=== PATIENT | female | born 1960 | race Caucasian/White ===

== ENCOUNTER 2024-01-05 05:47 | Day surgery (SDC) | payer OTHER ==
[2024-01-05 06:13] VITALS: RESP 16
[2024-01-05] MEDS: Lactated Ringers 1,000 ML IV SCH (06:39)
[2024-01-05] MEDS ORDERED: Xylocaine-Mpf 2% 5 Ml Vial ONE (07:30)
[2024-01-05] MEDS ORDERED: DIPRIVAN 200 MG/20 ML IV ONE ×2 (07:30→07:56)
--- NOTE | 2024-01-05 08:49 | OP ---
SURGERY DATE/TIME: 01/05/2024 0737 PREOPERATIVE DIAGNOSIS: Screening colonoscopy. POSTOPERATIVE DIAGNOSIS: Sigmoid colon polyps. PROCEDURE: Colonoscopy. SURGEON: Jam Lopez M.D. ANESTHESIA: MAC by Sav Babb CRNA. ESTIMATED BLOOD LOSS: Minimal. SPECIMENS: Three hot forceps polypectomies from the sigmoid colon all sent in the same specimen container. DESCRIPTION OF PROCEDURE: After informed written consent was obtained, the patient was taken to the endoscopy suite. Anesthesia was titrated to desired level of consciousness. Digital rectal exam showed normal sphincter tone and no internal lesions. The scope was inserted into the rectum and sequentially the entire colonic mucosa was traversed. The level of cecum was reached and verified with direct visualization of the ileocecal valve. Upon withdrawal there was normal mucosa with no lesions or defects until the distal sigmoid colon was reached. Prep was noted to be good. There was a larger sessile polyp in the distal sigmoid colon which was grasped with forceps cauterized and removed in piecemeal fashion. There were two small, flat sessile polyps in the same area, which were likewise grasped, cauterized and sent in the same specimen container. Prior to withdrawal retroflexion was performed and showed no internal lesions. The scope was removed. The patient was transferred to the recovery room in good condition.
[2024-01-05 09:38] VITALS: TEMP 96.7
[2024-01-05 09:59] VITALS: BP 147/96; PULSE 85; O2SAT 98
[2024-01-05 10:08] LABS: ANION GAP 12.4 MEQ/L (5-15); BILIRUBIN,TOTAL 0.3 mg/dL (0.2-1.3); Calcium 9.1 mg/dL (8.4-10.2); Creatinine 1 0.79 mg/dL (0.52-1.04); EST GLOMERULAR FILTRATION RATE 85.1 ML/MIN; Potassium 4.2 mmol/L (3.5-5.1); Total Protein 7.2 g/dL (6.3-8.2)
== END 2024-01-05 10:45 | disposition home or self-care (01) ==
LOC: SDC 05:47
PROVIDERS: ATTEND Family Medicine
DX: Z12.11 Encounter for screening for malignant neoplasm of colon (principal); Z79.899 Other long term (current) drug therapy; D12.5 Benign neoplasm of sigmoid colon
CPT/HCPCS: 36415; 80053; J2704

== ENCOUNTER 2024-09-07 06:01 | Emergency (ER) | payer OTHER ==
[2024-09-07 06:27] VITALS: RESP 18; TEMP 96.6
--- NOTE | 2024-09-07 06:41 | ERPHSYRPT ---
- History of Present Illness Historian: patient Exam Limitations: no limitations Patient Subjective Stated Complaint: pt states for the past 3 nights she has been woken up with sharp pain to the rt upper abd. Triage Nursing Assessment: pt ambulated into the er; pt is axo x4; c/o RUQ pain; pt states 8/10 pain to abd; abd soft, tender; tenderness present to RUQ; active bowel sounds in all quads; pt c/o nausea, denies vomiting; pt states she had diarrhea yesterday; mucus membranes pink and moist; skin PDW; no respiratory distress present; hypertensive Hx Tetanus, Diphtheria Vaccination/Date Given: No (unknown) Hx Influenza Vaccination/Date Given: Yes Hx Pneumococcal Vaccination/Date Given: No <ALEXYS HARRY - Last Filed: 09/07/24 06:38> <RICHY KINCAID - Last Filed: 09/07/24 09:15> - History of Present Illness Time Seen by Provider: 09/07/24 06:34 Physician History: 64 years old female presented in the ER with complaint of right upper quadrant pain with associated nausea. Patient reports having off-and-on pain for the last 3 nights, got worst today, moderate to severe sharp with some radiation to the back with associated nausea but no vomiting. Denies any significant aggravating or relieving factors. No fever or chills reported. (ALEXYS HARRY) Allergies/Adverse Reactions: No Known Drug Allergies Allergy (Verified 09/07/24 06:15) Home Medications: Escitalopram Oxalate 20 mg PO DAILY 12/15/23 [History] Travel Risk - International Travel Have you traveled outside of the country in past 3 weeks: No - Emerging Infectious Disease Are you exhibiting symptoms associated with any current EIDs: Yes Comment: covid 4 weeks ago <ALEXYS HARRY - Last Filed: 09/07/24 06:38> - Review of Systems Constitutional: No Symptoms Ears, Nose, & Throat: No Symptoms Respiratory: No Symptoms Cardiac: No Symptoms Abdominal/Gastrointestinal: Abdominal Pain, Nausea Genitourinary Symptoms: No Symptoms Musculoskeletal: No Symptoms Skin: No Symptoms Neurological: No Symptoms Endocrine: No Symptoms Hematologic/Lymphatic: No Symptoms <ALEXYS HARRY - Last Filed: 09/07/24 06:38> - Past Medical History Pertinent Past Medical History: Yes Neurological History: No Pertinent History ENT History: No Pertinent History Cardiac History: No Pertinent History Respiratory History: No Pertinent History Endocrine Medical History: Other Musculoskeletal History: Degenerative Disk Disease GI Medical History: No Pertinent History Psycho-Social History: Anxiety Female Reproductive Disorders: Breast Cancer Other Medical History: HX OF BREAST CANCER WITH BILATERAL MASTECTOMY 2018. PAT IENT IS FULLY VACCINATED. ANXIETY DISORDER, OSTEOPENIA - Past Surgical History Past Surgical History: Yes Neuro Surgical History: No Pertinent History Cardiac: No Pertinent History Respiratory: No Pertinent History Gastrointestinal: No Pertinent History Genitourinary: No Pertinent History Musculoskeletal: No Pertinent History Female Surgical History: Hysterectomy, Mastectomy - Social History Smoking Status: Current every day smoker How long have you smoked: 30 Exposure to second hand smoke: No Drug Use: none - Social Determinants of Health Will the patient participate in the screening: Yes Do you worry about a steady place to live?: No Do you have any problems with any of the following?: No known problems In the past 12 months,have you had to go without utilities?: No Transportation Issues: No Has anyone in your support network made you feel unsafe?: No Have you or anyone in your house had to go without enough: No <ALEXYS HARRY - Last Filed: 09/07/24 06:38> - Physical Exam General Appearance: no apparent distress, alert Eye Exam: PERRL/EOMI Ears, Nose, Throat Exam: normal ENT inspection Neck Exam: normal inspection, full range of motion Respiratory Exam: normal breath sounds, lungs clear Cardiovascular Exam: regular rate/rhythm, normal heart sounds Gastrointestinal/Abdomen Exam: soft, normal bowel sounds, tenderness (Right upper quadrant with some guarding positive Martínez sign) Back Exam: normal inspection, normal range of motion Neurologic Exam: alert, oriented x 3, cooperative Skin Exam: normal color SpO2 Interpretation: normal SpO2: 99 O2 Delivery: Room Air <ALEXYS HARRY - Last Filed: 09/07/24 06:38> - Nursing Vital Signs Nursing Vital Signs: Initial Vital Signs Pulse Rate 61 09/07/24 06:15 Blood Pressure 150/87 09/07/24 06:15 O2 Sat by Pulse Oximetry 98 09/07/24 06:15 Pain Scale Pain Intensity 6 Ordered Tests: Active Orders 24 hr Category Date Time Status IV Insertion STAT Care 09/07/24 06:37 Active NPO (ED) STAT Care 09/07/24 06:37 Active ABDOMEN AND PELVIS W/0 CONTRAS [CT] Stat Exams 09/07/24 06:38 Completed CBC W DIFF Stat Lab 09/07/24 06:58 Completed CMP Stat Lab 09/07/24 06:58 Completed LIPASE Stat Lab 09/07/24 06:58 Completed TROPONIN Q4H Lab 09/07/24 06:58 Completed TROPONIN Q4H Lab 09/07/24 10:45 Ordered TROPONIN Q4H Lab 09/07/24 14:45 Ordered UA W/RFX UR CULTURE Stat Lab 09/07/24 06:40 Completed Medication Summary Discontinued Medications Generic Name Dose Route Start Last Admin Trade Name Freq PRN Reason Stop Dose Admin Morphine Sulfate 4 mg 09/07/24 06:37 09/07/24 06:50 Morphine Sulfate 4 Mg/Ml Injection IV 09/07/24 06:38 4 mg STAT ONE Administration Morphine Sulfate Confirm 09/07/24 06:49 Morphine Sulfate 4 Mg/Ml Injection Administered 09/07/24 06:50 Dose 4 mg .ROUTE .STK-MED ONE Ondansetron HCl 4 mg 09/07/24 06:37 09/07/24 06:50 Ondansetron Hcl 4 Mg/2 Ml Vial IV 09/07/24 06:38 4 mg STAT ONE Administration Ondansetron HCl Confirm 09/07/24 06:49 Ondansetron Hcl 4 Mg/2 Ml Vial Administered 09/07/24 06:50 Dose 4 mg .ROUTE .STK-MED ONE Lab/Rad Data: Laboratory Result Diagrams 09/07/24 06:58 09/07/24 06:58 Laboratory Results 09/07/24 09/07/24 09/07/24 Range/Units 06:58 06:58 06:58 WBC 5.9 (3.98-10.04) x10^3/uL RBC 4.00 (3.93-5.22) x10^6/uL Hgb 12.9 (11.2-15.7) g/dL Hct 37.2 (34.1-44.9) % MCV 93.0 (79.4-94.8) fL MCH 32.3 H (25.6-32.2) pg MCHC 34.7 (32.2-35.5) g/dL RDW 12.8 (11.7-14.4) % Plt Count 132 L (182-369) x10^3/uL MPV 11.5 (9.4-12.3) fL Gran % 61.7 (34.0-71.1) % Immature Gran % (Auto) 0.2 (0.001-0.429) % Nucleat RBC Rel Count 0.0 (0.00-0.2) % Eos # (Auto) 0.07 (0.04-0.36) x10^3/uL Immature Gran # (Auto) 0.01 (0.001-0.031) x10^3u/L Absolute Lymphs (auto) 1.65 (1.18-3.74) x10^3/uL Absolute Monos (auto) 0.48 (0.24-0.86) x10^3/uL Absolute Nucleated RBC 0.00 (0.00-0.012) x10^3u/L Lymphocytes % 28.2 (19.3-51.7) % Monocytes % 8.2 (4.7-12.5) % Eosinophils % 1.2 (0.7-5.8) % Basophils % 0.5 (0.1-1.2) % Absolute Granulocytes 3.62 (1.56-6.13) x10^3/uL Basophils # 0.03 (0.01-0.08) x10^3/uL Sodium 138 (135-145) mmol/L Potassium 4.0 (3.5-5.1) mmol/L Chloride 105 (98-107) mmol/L Carbon Dioxide 24 (22-30) mmol/L Anion Gap 13.2 (5-15) MEQ/L BUN 12 (7-17) mg/dL Creatinine 0.97 (0.52-1.04) mg/dL Estimated GFR 66.1 ML/MIN Glucose 105 (74-106) mg/dL Calcium 9.5 (8.4-10.2) mg/dL Total Bilirubin 0.40 (0.2-1.3) mg/dL AST 26 (14-36) U/L ALT 20 (0-35) U/L Alkaline Phosphatase 81 (38-126) U/L Troponin I < 0.012 (0.000-0.033) ng/mL Serum Total Protein 7.2 (6.3-8.2) g/dL Albumin 4.2 (3.5-5.0) g/dL Lipase 60 (23-300) U/L Urine Color (Yellow) Urine Appearance (Clear) Urine pH (4.6-8.0) Ur Specific [place] (1.005-1.030) Urine Protein (Negative) Urine Glucose (UA) (Negative) mg/dL Urine Ketones (Negative) Urine Blood (Negative) Urine Nitrite (Negative) Urine Bilirubin (Negative) Urine Urobilinogen (0.2) mg/dL Ur Leukocyte Esterase (Negative) U Hyaline Cast (Auto) (0-2) /LPF Urine Microscopic RBC (0-5) /HPF Urine Microscopic WBC (0-5) /HPF Ur Epithelial Cells (None Seen) /HPF Urine Bacteria (None Seen) /HPF Urine Culture Reflexed (NO) 09/07/24 Range/Units 06:40 WBC (3.98-10.04) x10^3/uL RBC (3.93-5.22) x10^6/uL Hgb (11.2-15.7) g/dL Hct (34.1-44.9) % MCV (79.4-94.8) fL MCH (25.6-32.2) pg MCHC (32.2-35.5) g/dL RDW (11.7-14.4) % Plt Count (182-369) x10^3/uL MPV (9.4-12.3) fL Gran % (34.0-71.1) % Immature Gran % (Auto) (0.001-0.429) % Nucleat RBC Rel Count (0.00-0.2) % Eos # (Auto) (0.04-0.36) x10^3/uL Immature Gran # (Auto) (0.001-0.031) x10^3u/L Absolute Lymphs (auto) (1.18-3.74) x10^3/uL Absolute Monos (auto) (0.24-0.86) x10^3/uL Absolute Nucleated RBC (0.00-0.012) x10^3u/L Lymphocytes % (19.3-51.7) % Monocytes % (4.7-12.5) % Eosinophils % (0.7-5.8) % Basophils % (0.1-1.2) % Absolute Granulocytes (1.56-6.13) x10^3/uL Basophils # (0.01-0.08) x10^3/uL Sodium (135-145) mmol/L Potassium (3.5-5.1) mmol/L Chloride (98-107) mmol/L Carbon Dioxide (22-30) mmol/L Anion Gap (5-15) MEQ/L BUN (7-17) mg/dL Creatinine (0.52-1.04) mg/dL Estimated GFR ML/MIN Glucose (74-106) mg/dL Calcium (8.4-10.2) mg/dL Total Bilirubin (0.2-1.3) mg/dL AST (14-36) U/L ALT (0-35) U/L Alkaline Phosphatase (38-126) U/L Troponin I (0.000-0.033) ng/mL Serum Total Protein (6.3-8.2) g/dL Albumin (3.5-5.0) g/dL Lipase (23-300) U/L Urine Color Yellow (Yellow) Urine Appearance Cloudy A (Clear) Urine pH 5.5 (4.6-8.0) Ur Specific [place] 1.020 (1.005-1.030) Urine Protein Trace A (Negative) Urine Glucose (UA) Negative (Negative) mg/dL Urine Ketones Trace A (Negative) Urine Blood Negative (Negative) Urine Nitrite Negative (Negative) Urine Bilirubin Negative (Negative) Urine Urobilinogen 0.2 (0.2) mg/dL Ur Leukocyte Esterase Negative (Negative) U Hyaline Cast (Auto) NONE SEEN (0-2) /LPF Urine Microscopic RBC 0-2 (0-5) /HPF Urine Microscopic WBC 3-5 (0-5) /HPF Ur Epithelial Cells Many A (None Seen) /HPF Urine Bacteria None Seen (None Seen) /HPF Urine Culture Reflexed NO (NO) <ALEXYS HARRY - Last Filed: 09/07/24 06:38> - Progress Progress: improved <RICHY KINCAID - Last Filed: 09/07/24 09:15> - Progress Progress Note: 09/07/24 06:51 Workup is pending, care is transferred to Dr. Kincaid at end of my shift for reevaluation and final disposition (ALEXYS HARRY) 09/07/24 09:12 I interpreted the patient's laboratory data results. Patient is trace ketones in her urine suggesting mild dehydration. Patient's liver function test and pancreas enzymes levels are also within normal limits. The CT scan of the abdomen pelvis without contrast was interpreted by the radiologist and I reviewed the impression. The impression states abnormally distended gallbladder with wall thickening. No evidence of cholelithiasis. Outpatient ultrasound may yield more information. There is moderate fecal stasis present. The lumbar spine is with mild degenerative changes. (RICHY KINCAID) Medical Desision Making - Independent Historian Additional History obtained from: Family - Diagnostic Testing Diagnostic test were ordered, analyzed, and reviewed by me: Yes Radiological Interpretation: Reviewed by me, Teleradiologist Report - Risk of complications Low Risk: Low risk of morbidity from additional dx testing or treatment <RICHY KINCAID - Last Filed: 09/07/24 09:15> <ALEXYS HARRY - Last Filed: 09/07/24 06:38> - Departure Departure Disposition: Home Critical Care Time: No <RICHY KINCAID - Last Filed: 09/07/24 09:15> - Departure Clinical Impression: Right upper quadrant abdominal pain Condition: Stable Referrals: MARTHA LÓPEZ MD [Primary Care Provider] - Follow up/PCP as directed Additional Instructions: Drink plenty of clear liquids. Avoid fatty greasy spicy foods. Call your primary care provider today, 09/07/2024, to make arrangements for follow-up appointment to be seen in the next 3-5 days for further evaluation and management including outpatient ultrasound of the gallbladder and HIDA scan if indicated. Prescriptions: Ondansetron ODT 4 MG [Zofran Odt 4 mg] 4 mg PO Q6H PRN PRN #10 tablet PRN Reason: Vomiting
[2024-09-07] MEDS ORDERED: Zofran 4 MG/2 ML VIAL ONE (06:49)
[2024-09-07] MEDS ORDERED: MORPHINE SULFATE 4 MG INJ ONE (06:49)
[2024-09-07] MEDS: Zofran 4 MG/2 ML VIAL IV ONE (06:50)
[2024-09-07] MEDS: MORPHINE SULFATE 4 MG INJ IV ONE (06:50)
[2024-09-07 07:03] LABS: Absolute Neutrophil Ct (ANC) 3.62 x10^3/uL (1.56-6.13); BASOPHIL % 0.5 % (0.1-1.2); Basophil (Absolute #) 0.03 x10^3/uL (0.01-0.08); Eosinophil % 1.2 % (0.7-5.8); Eosinophil (Absolute #) 0.07 x10^3/uL (0.04-0.36); Hematocrit 37.2 % (34.1-44.9); Hemoglobin 12.9 g/dL (11.2-15.7); IMMATURE GRAN # 0.01 x10^3u/L (0.001-0.031); IMMATURE GRAN % 0.2 % (0.001-0.429); Lymphocyte (Absolute #) 1.65 x10^3/uL (1.18-3.74); Lymphocytes % 28.2 % (19.3-51.7); Mean Corpuscular Hemoglobin 32.3 pg (25.6-32.2); Mean Corpuscular Hgb Concent. 34.7 g/dL (32.2-35.5); Mean Platelet Volume 11.5 fL (9.4-12.3); Monocyte (Absolute #) 0.48 x10^3/uL (0.24-0.86); Monocytes % 8.2 % (4.7-12.5); Neutrophil % 61.7 % (34.0-71.1); Platelet Count 132 x10^3/uL (182-369); Red Cell Distribution Width 12.8 % (11.7-14.4); White Blood Count 5.9 x10^3/uL (3.98-10.04)
[2024-09-07 07:05] VITALS: BP 135/87; PULSE 58
[2024-09-07 07:16] LABS: Appearance Cloudy (Clear); Bacteria None Seen /HPF (None Seen); Bilirubin Negative (Negative); Blood Negative (Negative); Epithelial Cells Many /HPF (None Seen); Glucose, Urine Negative (Negative); Hyaline Casts NONE SEEN /LPF (0-2); Ketones Trace (Negative); Leukocyte Esterase Negative (Negative); Nitrite Negative (Negative); Ph 5.5 (4.6-8.0); Protein,Urine Dip Trace (Negative); RBC 0-2 /HPF (0-5); Urobilinogen 0.2 mg/dL (0.2)
[2024-09-07 07:17] LABS: ALBUMIN 4.2 g/dL (3.5-5.0); ANION GAP 13.2 MEQ/L (5-15); BILIRUBIN,TOTAL 0.4 mg/dL (0.2-1.3); Calcium 9.5 mg/dL (8.4-10.2); Creatinine 1 0.97 mg/dL (0.52-1.04); EST GLOMERULAR FILTRATION RATE 66.1 ML/MIN; Total Protein 7.2 g/dL (6.3-8.2)
--- NOTE | 2024-09-07 08:51 | XRAY ---
Indication: Right upper quadrant pain. Multiple contiguous axial images obtained through the abdomen and pelvis without contrast. Comparison: None Lung bases clear. Heart is not enlarged. Noncontrasted stomach and bowel loops appear nonobstructed with normal appendix. Moderate diffuse colonic fecal debris. Abnormal distended gallbladder with wall thickening but no gallstones or abnormal biliary distention. Previous hysterectomy. No free fluid/air. Remaining liver, pancreas, spleen, adrenal glands, kidneys, ureters, and bladder are unremarkable for noncontrast exam. Minimal aortoiliac calcifications without AAA. Osseous structures intact with mild degenerative changes throughout lumbar spine and both hips. Impression: 1. Abnormally distended gallbladder with wall thickening better evaluated with sonogram. 2. Incidental moderate diffuse fecal stasis, minimal arteriosclerotic disease, and mild degenerative changes.
[2024-09-07 09:31] VITALS: O2SAT 96
== END 2024-09-07 09:36 | disposition home or self-care (01) ==
LOC: ED 06:01
DX: R10.11 Right upper quadrant pain (principal); R11.0 Nausea; Z72.0 Tobacco use; Z79.899 Other long term (current) drug therapy
CPT/HCPCS: 36415; 74176; 80053; 81001; 83690; 84484; 85025; 96374; 99284; 99285; J2270; J2405

== ENCOUNTER 2025-01-04 01:23 | Emergency (ER) | payer OTHER ==
[2025-01-04 01:45] VITALS: TEMP 97.3
[2025-01-04] MEDS ORDERED: Zofran 4 MG/2 ML VIAL ONE (01:45)
--- NOTE | 2025-01-04 01:45 | ERPHSYRPT ---
- History of Present Illness Time Seen by Provider: 01/04/25 01:25 Historian: patient, family Exam Limitations: no limitations Physician History: 64 years old female with history of cholelithiasis/biliary colic's has seen general surgery, planning on cholecystectomy but patient has been throwing PVCs with pending ablations. She has Holter monitoring done few days ago with pending cardiology read presented in the ER with sudden onset right upper quadrant pain around 9 PM with associated multiple episodes of nonprojectile, nonbilious vomiting without hematemesis. Patient is dry heaving now. Reports 10/10 intensity sharp pain, aggravated with palpation and minimal movements. Denies associated diarrhea. Reports having similar symptoms in the past. No fever or chills reported. Allergies/Adverse Reactions: No Known Drug Allergies Allergy (Verified 01/04/25 01:33) Home Medications: Carvedilol 3.125 mg [Coreg 3.125 MG] 3.125 mg PO BID 01/04/25 [History] Escitalopram Oxalate [Lexapro] 10 mg PO DAILY 01/04/25 [History] Esomeprazole Magnesium [Nexium] 40 mg PO DAILY 01/04/25 [History] Hx Tetanus, Diphtheria Vaccination/Date Given: No (unknown) Hx Influenza Vaccination/Date Given: Yes Hx Pneumococcal Vaccination/Date Given: No Travel Risk - Emerging Infectious Disease Are you exhibiting symptoms associated with any current EIDs: Yes Comment: covid 4 weeks ago - Review of Systems Constitutional: No Symptoms Ears, Nose, & Throat: No Symptoms Respiratory: No Symptoms Cardiac: No Symptoms Abdominal/Gastrointestinal: Abdominal Pain, Nausea, Vomiting Genitourinary Symptoms: No Symptoms Musculoskeletal: No Symptoms Skin: No Symptoms Neurological: No Symptoms Psychological: No Symptoms Endocrine: No Symptoms Hematologic/Lymphatic: No Symptoms Immunological/Allergic: No Symptoms - Past Medical History Pertinent Past Medical History: Yes Neurological History: No Pertinent History ENT History: No Pertinent History Cardiac History: No Pertinent History Respiratory History: No Pertinent History Endocrine Medical History: Other Musculoskeletal History: Degenerative Disk Disease GI Medical History: No Pertinent History Psycho-Social History: Anxiety Female Reproductive Disorders: Breast Cancer Other Medical History: HX OF BREAST CANCER WITH BILATERAL MASTECTOMY 2018. PATIENT IS FULLY VACCINATED. ANXIETY DISORDER, OSTEOPENIA - Past Surgical History Past Surgical History: Yes Neuro Surgical History: No Pertinent History Cardiac: No Pertinent History Respiratory: No Pertinent History Gastrointestinal: No Pertinent History Genitourinary: No Pertinent History Musculoskeletal: No Pertinent History Female Surgical History: Hysterectomy, Mastectomy - Social History Smoking Status: Current every day smoker How long have you smoked: 30 Exposure to second hand smoke: No Drug Use: none - Social Determinants of Health Will the patient participate in the screening: Yes Do you worry about a steady place to live?: No In the past 12 months,have you had to go without utilities?: No Transportation Issues: No Has anyone in your support network made you feel unsafe?: No Have you or anyone in your house had to go w/o enough food: No - Nursing Vital Signs Nursing Vital Signs: Initial Vital Signs Temperature 97.3 F 01/04/25 01:33 Pulse Rate 87 01/04/25 01:33 Respiratory Rate 22 01/04/25 01:33 Blood Pressure 167/108 01/04/25 01:33 O2 Sat by Pulse Oximetry 100 01/04/25 01:33 Pain Scale Pain Intensity 0 - Physical Exam General Appearance: no apparent distress, alert Eye Exam: PERRL/EOMI Ears, Nose, Throat Exam: normal ENT inspection Neck Exam: normal inspection, non-tender, supple, full range of motion Respiratory Exam: normal breath sounds, lungs clear Cardiovascular Exam: regular rate/rhythm, normal heart sounds Gastrointestinal/Abdomen Exam: soft, tenderness, guarding (Positive Martínez sign), No normal bowel sounds Back Exam: normal inspection, normal range of motion Extremity Exam: normal inspection, normal range of motion Neurologic Exam: alert, oriented x 3, cooperative Skin Exam: normal color SpO2 Interpretation: normal SpO2: 96 O2 Delivery: Room Air - Course EKG Interpreted by Me: RATE (73), Sinus Rhythm, NORMAL AXIS, NORMAL INTERVALS, Non-specific ST Changes, Other (PVCs) Ordered Tests: Active Orders 24 hr Category Date Time Status IV Insertion STAT Care 01/04/25 01:42 Completed NPO (ED) STAT Care 01/04/25 01:42 Completed ABDOMEN AND PELVIS W/0 CONTRAS [CT] Stat Exams 01/04/25 02:15 Completed CBC W DIFF Stat Lab 01/04/25 01:55 Completed CMP Stat Lab 01/04/25 01:55 Completed LIPASE Stat Lab 01/04/25 01:55 Completed UA W/RFX UR CULTURE Stat Lab 01/04/25 04:45 Completed Medication Summary Discontinued Medications Generic Name Dose Route Start Last Admin Trade Name Dayo PRN Reason Stop Dose Admin Hydromorphone HCl Confirm 01/04/25 02:53 Hydromorphone 1 Mg/1ml Inj Administered 01/04/25 02:54 Dose 1 mg .ROUTE .STK-MED ONE Hydromorphone HCl 1 mg 01/04/25 02:45 01/04/25 02:54 Hydromorphone 1 Mg/1ml Inj IV 01/04/25 02:46 1 mg STAT ONE Administration Sodium Chloride 1,000 mls @ 999 mls/hr 01/04/25 01:42 01/04/25 02:52 Sodium Chloride 0.9% 1000 Ml IV 01/04/25 02:42 Infused .Q1H1M STA Infusion Sodium Chloride Confirm 01/04/25 01:46 Sodium Chloride 0.9% 1000 Ml Administered 01/04/25 01:47 Dose 1,000 mls @ ud .ROUTE .STK-MED ONE Morphine Sulfate 4 mg 01/04/25 01:42 01/04/25 01:52 Morphine Sulfate 4 Mg/Ml Injection IV 01/04/25 01:43 4 mg STAT ONE Administration Morphine Sulfate Confirm 01/04/25 01:46 Morphine Sulfate 4 Mg/Ml Injection Administered 01/04/25 01:47 Dose 4 mg .ROUTE .STK-MED ONE Ondansetron HCl 4 mg 01/04/25 01:42 01/04/25 01:52 Ondansetron Hcl 4 Mg/2 Ml Vial IV 01/04/25 01:43 4 mg STAT ONE Administration Ondansetron HCl Confirm 01/04/25 01:45 Ondansetron Hcl 4 Mg/2 Ml Vial Administered 01/04/25 01:46 Dose 4 mg .ROUTE .STK-MED ONE Lab/Rad Data: Laboratory Result Diagrams 01/04/25 01:55 01/04/25 01:55 Laboratory Results 01/04/25 01/04/25 01/04/25 Range/Units 04:45 01:55 01:55 WBC 10.8 H (3.98-10.04) x10^3/uL RBC 4.45 (3.93-5.22) x10^6/uL Hgb 14.0 (11.2-15.7) g/dL Hct 39.6 (34.1-44.9) % MCV 89.0 (79.4-94.8) fL MCH 31.5 (25.6-32.2) pg MCHC 35.4 (32.2-35.5) g/dL RDW 11.7 (11.7-14.4) % Plt Count 222 (182-369) x10^3/uL MPV 11.5 (9.4-12.3) fL Gran % 69.1 (34.0-71.1) % Immature Gran % (Auto) 0.2 (0.001-0.429) % Nucleat RBC Rel Count 0.0 (0.00-0.2) % Eos # (Auto) 0.09 (0.04-0.36) x10^3/uL Immature Gran # (Auto) 0.02 (0.001-0.031) x10^3u/L Absolute Lymphs (auto) 2.40 (1.18-3.74) x10^3/uL Absolute Monos (auto) 0.75 (0.24-0.86) x10^3/uL Absolute Nucleated RBC 0.00 (0.00-0.012) x10^3u/L Lymphocytes % 22.2 (19.3-51.7) % Monocytes % 6.9 (4.7-12.5) % Eosinophils % 0.8 (0.7-5.8) % Basophils % 0.8 (0.1-1.2) % Absolute Granulocytes 7.45 H (1.56-6.13) x10^3/uL Basophils # 0.09 H (0.01-0.08) x10^3/uL Sodium 137 (135-145) mmol/L Potassium 3.5 (3.5-5.1) mmol/L Chloride 101 (98-107) mmol/L Carbon Dioxide 21 L (22-30) mmol/L Anion Gap 18.2 H (5-15) MEQ/L BUN 11 (7-17) mg/dL Creatinine 0.75 (0.52-1.04) mg/dL Estimated GFR 90.0 ML/MIN Glucose 146 H (74-106) mg/dL Calcium 9.7 (8.4-10.2) mg/dL Total Bilirubin 0.50 (0.2-1.3) mg/dL AST 29 (14-36) U/L ALT 29 (0-35) U/L Alkaline Phosphatase 121 (38-126) U/L Serum Total Protein 7.7 (6.3-8.2) g/dL Albumin 4.8 (3.5-5.0) g/dL Lipase 85 (23-300) U/L Urine Color Yellow (Yellow) Urine Appearance Clear (Clear) Urine pH 5.0 (4.6-8.0) Ur Specific Simpson 1.010 (1.005-1.030) Urine Protein Negative (Negative) Urine Glucose (UA) Negative (Negative) mg/dL Urine Ketones Negative (Negative) Urine Blood Negative (Negative) Urine Nitrite Negative (Negative) Urine Bilirubin Negative (Negative) Urine Urobilinogen 0.2 (0.2) mg/dL Ur Leukocyte Esterase Negative (Negative) U Hyaline Cast (Auto) NONE SEEN (0-2) /LPF Urine Microscopic RBC 0-2 (0-5) /HPF Urine Microscopic WBC 0-2 (0-5) /HPF Ur Epithelial Cells None Seen (None Seen) /HPF Urine Bacteria None Seen (None Seen) /HPF Urine Culture Reflexed NO (NO) - Progress Progress: improved Progress Note: 01/04/25 04:52 64 years old is evaluated in ER for right upper quadrant pain with history of distended gallbladder/cholelithiasis. Patient meets criteria for cholecystectomy but needs cardiology clearance which she is in the process of getting because of repeated/frequent PVCs. She is given fluids and symptomatic treatment, on reevaluation she is feeling better. No vomiting while in the ER. Workup showed white count of 10, chemistries fairly unremarkable with normal transaminases and total bili. Normal lipase. Obtained CT abdomen pelvis without contrast which showed distended gallbladder but no findings suggestive of acute cholecystitis. I believe patient has biliary colic. Patient CT although did not show any stone but patient does have a history of documented stones in the previous studies. I think patient can be discharged and recommended to keep up with appointment for cardiology and follow-up with Dr. Merritt whom she has seen before and is planning on cholecystectomy. Discussed signs symptoms of worsening needing return to ER which she seems understanding. I will give her pain medications and Zofran to go home to take as needed. Complexity of problem addressed: Moderate acute Complexity of data reviewed/analyzed: Moderate Risk of complication/morbidity/mortality with manage condition: Low to moderate Counseled pt/family regarding: lab results, diagnosis, need for follow-up, rad results Medical Desision Making - Independent Historian Additional History obtained from: Spouse - Diagnostic Testing Diagnostic test were ordered, analyzed, and reviewed by me: Yes Radiological Interpretation: Reviewed by me, Teleradiologist Report - Risk of complications The pt has a mod risk of morbidity or mortality based on: Need for prescription drug management - Departure Departure Disposition: Home Clinical Impression: Biliary colic Condition: Stable Critical Care Time: No Referrals: MARTHA LÓPEZ MD [Primary Care Provider] - Follow up with PCP 1 day Instructions: Gallstones - ED discharge instructions Additional Instructions: Keep appointment with your equal opportunity representative for clearance. Follow-up with Dr. Merritt as discussed. Return to ER for intractable pain/vomiting or if develop fever chills etc. Prescriptions: Hydrocodone/Acetaminophen [Hydrocodone-Acetamin 5-325 mg] 1 tab PO Q6HPRN PRN 3 Days #12 tablet MDD 4 PRN Reason: Pain Ondansetron ODT 4 MG [Zofran Odt 4 mg] 1 ea PO QIDPRN PRN #10 tablet PRN Reason: n/v
[2025-01-04] MEDS ORDERED: MORPHINE SULFATE 4 MG INJ ONE (01:46)
[2025-01-04] MEDS ORDERED: Sodium Chloride 0.9% 1000 ML 1,000 ML ONE (01:46)
[2025-01-04] MEDS: MORPHINE SULFATE 4 MG INJ IV ONE (01:52)
[2025-01-04] MEDS: Sodium Chloride 0.9% 1000 ML 1,000 ML IV STA (01:52)
[2025-01-04] MEDS: Zofran 4 MG/2 ML VIAL IV ONE (01:52)
[2025-01-04 01:58] LABS: Absolute Neutrophil Ct (ANC) 7.45 x10^3/uL (1.56-6.13); BASOPHIL % 0.8 % (0.1-1.2); Basophil (Absolute #) 0.09 x10^3/uL (0.01-0.08); Eosinophil % 0.8 % (0.7-5.8); Eosinophil (Absolute #) 0.09 x10^3/uL (0.04-0.36); Hematocrit 39.6 % (34.1-44.9); IMMATURE GRAN # 0.02 x10^3u/L (0.001-0.031); IMMATURE GRAN % 0.2 % (0.001-0.429); Lymphocytes % 22.2 % (19.3-51.7); Mean Corpuscular Hemoglobin 31.5 pg (25.6-32.2); Mean Corpuscular Hgb Concent. 35.4 g/dL (32.2-35.5); Mean Platelet Volume 11.5 fL (9.4-12.3); Monocyte (Absolute #) 0.75 x10^3/uL (0.24-0.86); Monocytes % 6.9 % (4.7-12.5); Neutrophil % 69.1 % (34.0-71.1); Platelet Count 222 x10^3/uL (182-369); Red Blood Count 4.45 x10^6/uL (3.93-5.22); Red Cell Distribution Width 11.7 % (11.7-14.4); White Blood Count 10.8 x10^3/uL (3.98-10.04)
[2025-01-04 02:11] LABS: ALBUMIN 4.8 g/dL (3.5-5.0); ANION GAP 18.2 MEQ/L (5-15); BILIRUBIN,TOTAL 0.5 mg/dL (0.2-1.3); Calcium 9.7 mg/dL (8.4-10.2); Creatinine 1 0.75 mg/dL (0.52-1.04); Potassium 3.5 mmol/L (3.5-5.1); Total Protein 7.7 g/dL (6.3-8.2)
[2025-01-04] MEDS ORDERED: Hydromorphone 1 mg/ml Injection ONE (02:53)
[2025-01-04] MEDS: Hydromorphone 1 mg/ml Injection IV ONE (02:54)
--- NOTE | 2025-01-04 03:17 | XRAY ---
CLINICAL HISTORY: RUQ PAIN rule out acute cholecystit COMPARISON: 07 September 2024 TECHNIQUE: Contiguous axial images were obtained from the level of the diaphragm to the pubic symphysis without intravenous or oral contrast. Coronal and sagittal reconstructions were likewise performed and indicated to increase the sensitivity for detecting clinically relevant pathology. CT scan was performed according to ALARA (as low as reasonable achievable). FINDINGS: The visualized lung bases are clear. Evaluation of the abdominal and pelvic visceral organs is limited without intravenous contrast. The unenhanced liver, spleen, pancreas, and adrenal glands are grossly unremarkable. The gallbladder is distended (8 x 3 cm). No hyperdense calculus noted. No abnormal wall thickening or pericholecystic fat stranding noted to suggest cholecystitis. No intrahepatic biliary radicle dilatation noted. The kidneys are normal in size and attenuation without obvious calcification. There is no hydronephrosis or perinephric stranding. The ureters are normal in caliber. No adenopathy or fluid collections are seen. No evidence of focal or diffuse bowel wall thickening or evidence of bowel obstruction is seen. The appendix is visualized in the right lower quadrant and appears within normal limits. The aorta is normal in caliber. The urinary bladder is normal in contour. Pelvic viscera are grossly unremarkable. No aggressive appearing osseous lesions are identified. IMPRESSION: 1. Distended gall bladder with no features of cholecystitis and no intrahepatic biliary radicle dilatation. 2. As compared to prior study, gall bladder wall thickening has resolved. Electronically Signed by: Luis Quiros MD. (01/04/2025 03:13:20 EDT)
[2025-01-04 04:55] LABS: Appearance Clear (Clear); Bacteria None Seen /HPF (None Seen); Bilirubin Negative (Negative); Blood Negative (Negative); Epithelial Cells None Seen /HPF (None Seen); Glucose, Urine Negative (Negative); Hyaline Casts NONE SEEN /LPF (0-2); Ketones Negative (Negative); Leukocyte Esterase Negative (Negative); Nitrite Negative (Negative); Protein,Urine Dip Negative (Negative); RBC 0-2 /HPF (0-5); Urobilinogen 0.2 mg/dL (0.2); WBC 0-2 /HPF (0-5)
[2025-01-04 05:08] VITALS: BP 133/94
[2025-01-04 05:12] VITALS: PULSE 96; RESP 16; O2SAT 96
== END 2025-01-04 05:17 | disposition home or self-care (01) ==
LOC: ED 01:23
DX: K80.50 Calculus of bile duct without cholangitis or cholecystitis without obstruction (principal); R11.2 Nausea with vomiting, unspecified; R10.11 Right upper quadrant pain; Z79.891 Long term (current) use of opiate analgesic; Z79.899 Other long term (current) drug therapy; Z72.0 Tobacco use
CPT/HCPCS: 36415; 74176; 80053; 81001; 83690; 85025; 93005; 96361; 96374; 96375; 99284; 99285; J1171; J2270; J2405

== ENCOUNTER 2025-01-06 10:18 | Observation (INO) | payer OTHER ==
[2025-01-06] MEDS ORDERED: Sodium Chloride 0.9% 1000 ML 1,000 ML ONE ×2 (10:51→21:18)
[2025-01-06] MEDS ORDERED: Hydromorphone 1 mg/ml Injection ONE (10:51)
[2025-01-06] MEDS ORDERED: Zofran 4 MG/2 ML VIAL ONE ×2 (10:51→20:36)
--- NOTE | 2025-01-06 10:52 | ERPHSYRPT ---
- History of Present Illness Historian: patient Exam Limitations: no limitations Patient Subjective Stated Complaint: C/O "gallbladder attack" that started at 0730 today. Right sided abdominal pain with N/V. Triage Nursing Assessment: Patient ambulated back to ER. She is alert and oriented. S/S of pain present; grimacing, moaning, gaurding. MORAN WNL. Skin tone normal. Timing/Duration: today Activities at Onset: none Quality: cramping, sharpness Abdominal Pain Onset Location: RUQ Pain Radiation: no radiation Severity of Pain-Max: moderate Severity of Pain-Current: moderate Modifying Factors: Improves With: nothing Associated Symptoms: loss of appetite, nausea, vomiting, No back, No chest pain, No diaphoresis, No diarrhea, No fever/chills, No shortness of breath Previous symptoms: same symptoms as today, recently seen Hx Tetanus, Diphtheria Vaccination/Date Given: Yes Hx Influenza Vaccination/Date Given: Yes Hx Pneumococcal Vaccination/Date Given: No Immunizations Up to Date: Yes <CHRISTINA MARK - Last Filed: 01/06/25 18:38> <MIKE BAIG - Last Filed: 01/07/25 01:20> <RICHY KINCAID - Last Filed: 01/07/25 17:10> - History of Present Illness Time Seen by Provider: 01/06/25 10:51 Physician History: 64yo f pmhx HFrEF, gallstones, presents for RUQ pain and vomiting. Pt was recently seen in this ED on 01/04/25 for same sx, was dx w/ biliary colic and sent home w/ zofran and pain medications. Pt reports her pain has not improved at all since her last visit, reports it worsened this morning and her vomiting also worsened. Pt endorses several episodes of NBNB emesis this AM. Pt reports last BM was yesterday. Pt denies any cp or sob, denies radiation of abdominal pain outside of RUQ. Pt reports she is attempting to get scheduled for outpatient cholecystectomy but is pending cardiac clearance 2/2 her CHF and frequent PVCs that she reports she needs an ablation for, is seeing an roof designer in [place] for this issue. Pt denies any fevers or chills at today's visit. (CHRISTINA MARK) Allergies/Adverse Reactions: No Known Drug Allergies Allergy (Verified 01/06/25 10:29) Home Medications: Carvedilol 3.125 mg [Coreg 3.125 MG] 3.125 mg PO BID 01/04/25 [History] Escitalopram Oxalate [Lexapro] 10 mg PO DAILY 01/04/25 [History] Esomeprazole Magnesium [Nexium] 40 mg PO DAILY 01/04/25 [History] Travel Risk - International Travel Have you traveled outside of the country in past 3 weeks: No - Emerging Infectious Disease Are you exhibiting symptoms associated with any current EIDs: Yes Symptoms: Abdominal Pain Comment: covid 4 weeks ago <CHRISTINA MARK - Last Filed: 01/06/25 18:38> - Review of Systems Constitutional: No Symptoms Respiratory: No Symptoms Cardiac: No Symptoms Abdominal/Gastrointestinal: Abdominal Pain, Nausea, Vomiting, No Diarrhea, No Constipation, No Hematemesis, No Hematochezia Genitourinary Symptoms: No Dysuria, No Hematuria, No Incontinence <CHRISTINA MARK - Last Filed: 01/06/25 18:38> - Past Medical History Pertinent Past Medical History: Yes Neurological History: No Pertinent History ENT History: No Pertinent History Cardiac History: Arrhythmia, Other Respiratory History: No Pertinent History Endocrine Medical History: Other Musculoskeletal History: Degenerative Disk Disease, Other GI Medical History: GERD, Gallbladder Disease Psycho-Social History: Anxiety Female Reproductive Disorders: Breast Cancer Other Medical History: HX OF BREAST CANCER WITH BILATERAL MASTECTOMY 2018. 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 (referred to a specialist in [place] for a ventricular ablasion) - Past Surgical History Past Surgical History: Yes Neuro Surgical History: No Pertinent History Cardiac: No Pertinent History Respiratory: No Pertinent History Gastrointestinal: No Pertinent History Genitourinary: No Pertinent History Musculoskeletal: No Pertinent History Female Surgical History: Hysterectomy, Mastectomy - Social History Smoking Status: Current every day smoker How long have you smoked: 30 Exposure to second hand smoke: No Drug Use: none - Social Determinants of Health Will the patient participate in the screening: Yes Do you worry about a steady place to live?: No Do you have any problems with any of the following?: No known problems In the past 12 months,have you had to go without utilities?: No Transportation Issues: No Has anyone in your support network made you feel unsafe?: No Have you or anyone in your house had to go w/o enough food: No <CHRISTINA MARK - Last Filed: 01/06/25 18:38> - Physical Exam General Appearance: no apparent distress, alert Respiratory Exam: normal breath sounds, lungs clear, airway intact, No chest tenderness, No respiratory distress, No rhonchi, No wheezing, No stridor Cardiovascular Exam: normal heart sounds, normal peripheral pulses, No murmur, No edema Gastrointestinal/Abdomen Exam: soft, normal bowel sounds, tenderness (RUQ, RLQ), No distention Neurologic Exam: alert, oriented x 3, cooperative Skin Exam: normal color, No jaundice SpO2 Interpretation: normal SpO2: 97 O2 Delivery: Room Air <CHRISTINA MARK Filed: 01/06/25 18:38> - Nursing Vital Signs Nursing Vital Signs: Initial Vital Signs Temperature 97.6 F 01/06/25 10:25 Pulse Rate 81 01/06/25 10:25 Respiratory Rate 23 01/06/25 10:25 Blood Pressure 149/104 01/06/25 10:25 O2 Sat by Pulse Oximetry 97 01/06/25 10:25 Pain Scale Pain Intensity 3 - Course EKG Interpreted by Me: RATE (77), Sinus Rhythm, Other (multiple PVCs, not suggestive of acute ischemia) <CHRISTINA MARK Filed: 01/06/25 18:38> Ordered Tests: Active Orders 24 hr Category Date Time Status HCG QUALITATIVE, URINE Stat Lab 01/06/25 20:36 Completed UA W/RFX UR CULTURE Stat Lab 01/06/25 20:33 Completed Medication Summary Generic Name Dose Route Start Last Admin Trade Name Dayo PRN Reason Stop Dose Admin Sodium Chloride 1,000 mls @ 100 mls/hr 01/06/25 11:00 01/07/25 08:14 Sodium Chloride 0.9% 1000 Ml IV 02/05/25 10:59 Not Given .Q10H JOHN Sodium Chloride 500 mls @ 50 mls/hr 01/07/25 08:15 01/07/25 08:14 Sodium Chloride 0.9% 500 Ml IV 02/06/25 08:14 50 mls/hr .Q10H JOHN Administration Ampicillin Sodium/Sulbactam 100 mls @ 200 mls/hr 01/07/25 17:03 Sodium 1.5 g/ Sodium Chloride IV 01/07/25 17:32 STAT ONE Nicotine 14 mg 01/07/25 10:00 01/07/25 10:02 Nicotine 14 Mg/Patch Patch TOP 02/06/25 09:59 14 mg Q24H JOHN Administration Discontinued Medications Generic Name Dose Route Start Last Admin Trade Name Dayo PRN Reason Stop Dose Admin Droperidol 1.25 mg 01/06/25 12:30 01/06/25 12:36 Droperidol 5 Mg/2 Ml Vial IV 01/06/25 12:31 1.25 mg STAT ONE Administration Droperidol Confirm 01/06/25 12:34 Droperidol 5 Mg/2 Ml Vial Administered 01/06/25 12:35 Dose 5 mg .ROUTE .STK-MED ONE Droperidol 1.25 mg 01/06/25 22:50 01/06/25 23:12 Droperidol 5 Mg/2 Ml Vial IV 01/06/25 22:51 1.25 mg STAT ONE Administration Droperidol Confirm 01/06/25 23:11 Droperidol 5 Mg/2 Ml Vial Administered 01/06/25 23:12 Dose 5 mg .ROUTE .STK-MED ONE Hydromorphone HCl 1 mg 01/06/25 10:51 01/06/25 10:58 Hydromorphone 1 Mg/1ml Inj IV 01/06/25 10:52 1 mg STAT ONE Administration Hydromorphone HCl Confirm 01/06/25 10:51 Hydromorphone 1 Mg/1ml Inj Administered 01/06/25 10:52 Dose 1 mg .ROUTE .STK-MED ONE Hydromorphone HCl 1 mg 01/07/25 03:18 01/07/25 03:21 Hydromorphone 1 Mg/1ml Inj IV 01/07/25 03:19 1 mg STAT ONE Administration Hydromorphone HCl Confirm 01/07/25 03:20 Hydromorphone 1 Mg/1ml Inj Administered 01/07/25 03:21 Dose 1 mg .ROUTE .STK-MED ONE Hydromorphone HCl 1 mg 01/07/25 12:37 01/07/25 12:42 Hydromorphone 1 Mg/1ml Inj IV 01/07/25 12:38 1 mg STAT ONE Administration Hydromorphone HCl Confirm 01/07/25 12:40 Hydromorphone 1 Mg/1ml Inj Administered 01/07/25 12:41 Dose 1 mg .ROUTE .STK-MED ONE Morphine Sulfate 4 mg 01/06/25 10:44 01/06/25 11:00 Morphine Sulfate 4 Mg/Ml Injection IV 01/06/25 10:45 Not Given STAT ONE Morphine Sulfate 6 mg 01/07/25 02:26 01/07/25 03:18 Morphine Sulfate 10 Mg/Ml Injection IM 01/07/25 02:27 Not Given STAT ONE Ondansetron HCl 4 mg 01/06/25 10:50 01/06/25 10:58 Ondansetron Hcl 4 Mg/2 Ml Vial IV 01/06/25 10:51 4 mg STAT ONE Administration Ondansetron HCl Confirm 01/06/25 10:51 Ondansetron Hcl 4 Mg/2 Ml Vial Administered 01/06/25 10:52 Dose 4 mg .ROUTE .STK-MED ONE Ondansetron HCl 4 mg 01/06/25 20:31 01/06/25 20:37 Ondansetron Hcl 4 Mg/2 Ml Vial IV 01/06/25 20:32 4 mg STAT ONE Administration Ondansetron HCl Confirm 01/06/25 20:36 Ondansetron Hcl 4 Mg/2 Ml Vial Administered 01/06/25 20:37 Dose 4 mg .ROUTE .STK-MED ONE Ondansetron HCl 4 mg 01/07/25 12:28 01/07/25 12:48 Ondansetron Hcl 4 Mg/2 Ml Vial IV 01/07/25 12:29 Not Given STAT ONE Ondansetron HCl Confirm 01/07/25 12:30 Ondansetron Hcl 4 Mg/2 Ml Vial Administered 01/07/25 12:31 Dose 4 mg .ROUTE .STK-MED ONE Prochlorperazine Edisylate 10 mg 01/06/25 21:40 01/06/25 21:52 Prochlorperazine Edisylate 10 Mg/2 Ml Vial IV 01/06/25 21:41 10 mg STAT ONE Administration Prochlorperazine Edisylate Confirm 01/06/25 21:49 Prochlorperazine Edisylate 10 Mg/2 Ml Vial Administered 01/06/25 21:50 Dose 10 mg .ROUTE .K-MED ONE Lab/Rad Data: Laboratory Result Diagrams 01/06/25 10:50 01/06/25 10:50 Laboratory Results 01/06/25 01/06/25 01/06/25 Range/Units 20:36 20:33 10:50 WBC (3.98-10.04) x10^3/uL RBC (3.93-5.22) x10^6/uL Hgb (11.2-15.7) g/dL Hct (34.1-44.9) % MCV (79.4-94.8) fL MCH (25.6-32.2) pg MCHC (32.2-35.5) g/dL RDW (11.7-14.4) % Plt Count (182-369) x10^3/uL MPV (9.4-12.3) fL Gran % (34.0-71.1) % Immature Gran % (Auto) (0.001-0.429) % Nucleat RBC Rel Count (0.00-0.2) % Eos # (Auto) (0.04-0.36) x10^3/uL Immature Gran # (Auto) (0.001-0.031) x10^3u/L Absolute Lymphs (auto) (1.18-3.74) x10^3/uL Absolute Monos (auto) (0.24-0.86) x10^3/uL Absolute Nucleated RBC (0.00-0.012) x10^3u/L Lymphocytes % (19.3-51.7) % Monocytes % (4.7-12.5) % Eosinophils % (0.7-5.8) % Basophils % (0.1-1.2) % Absolute Granulocytes (1.56-6.13) x10^3/uL Basophils # (0.01-0.08) x10^3/uL Sodium (135-145) mmol/L Potassium (3.5-5.1) mmol/L Chloride (98-107) mmol/L Carbon Dioxide (22-30) mmol/L Anion Gap (5-15) MEQ/L BUN (7-17) mg/dL Creatinine (0.52-1.04) mg/dL Estimated GFR ML/MIN Glucose (74-106) mg/dL Calcium (8.4-10.2) mg/dL Total Bilirubin (0.2-1.3) mg/dL AST (14-36) U/L ALT (0-35) U/L Alkaline Phosphatase (38-126) U/L Troponin I < 0.012 (0.000-0.033) ng/mL Serum Total Protein (6.3-8.2) g/dL Albumin (3.5-5.0) g/dL Lipase (23-300) U/L Urine Color Yellow (Yellow) Urine Appearance Clear (Clear) Urine pH 5.5 (4.6-8.0) Ur Specific Holcomb 1.015 (1.005-1.030) Urine Protein Negative (Negative) Urine Glucose (UA) Negative (Negative) mg/dL Urine Ketones 15 A (Negative) Urine Blood Negative (Negative) Urine Nitrite Negative (Negative) Urine Bilirubin Negative (Negative) Urine Urobilinogen 1.0 A (0.2) mg/dL Ur Leukocyte Esterase Negative (Negative) U Hyaline Cast (Auto) NONE SEEN (0-2) /LPF Urine Microscopic RBC 0-2 (0-5) /HPF Urine Microscopic WBC 0-2 (0-5) /HPF Ur Epithelial Cells Rare (None Seen) /HPF Urine Bacteria None Seen (None Seen) /HPF Urine Culture Reflexed NO (NO) Urine HCG, Qual NEGATIVE (NEGATIVE) 01/06/25 01/06/25 Range/Units 10:50 10:50 WBC 7.5 (3.98-10.04) x10^3/uL RBC 4.37 (3.93-5.22) x10^6/uL Hgb 14.2 (11.2-15.7) g/dL Hct 40.0 (34.1-44.9) % MCV 91.5 (79.4-94.8) fL MCH 32.5 H (25.6-32.2) pg MCHC 35.5 (32.2-35.5) g/dL RDW 11.7 (11.7-14.4) % Plt Count 195 (182-369) x10^3/uL MPV 11.6 (9.4-12.3) fL Gran % 64.6 (34.0-71.1) % Immature Gran % (Auto) 0.1 (0.001-0.429) % Nucleat RBC Rel Count 0.0 (0.00-0.2) % Eos # (Auto) 0.10 (0.04-0.36) x10^3/uL Immature Gran # (Auto) 0.01 (0.001-0.031) x10^3u/L Absolute Lymphs (auto) 1.90 (1.18-3.74) x10^3/uL Absolute Monos (auto) 0.57 (0.24-0.86) x10^3/uL Absolute Nucleated RBC 0.00 (0.00-0.012) x10^3u/L Lymphocytes % 25.3 (19.3-51.7) % Monocytes % 7.6 (4.7-12.5) % Eosinophils % 1.3 (0.7-5.8) % Basophils % 1.1 (0.1-1.2) % Absolute Granulocytes 4.86 (1.56-6.13) x10^3/uL Basophils # 0.08 (0.01-0.08) x10^3/uL Sodium 138 (135-145) mmol/L Potassium 4.2 (3.5-5.1) mmol/L Chloride 101 (98-107) mmol/L Carbon Dioxide 27 (22-30) mmol/L Anion Gap 14.5 (5-15) MEQ/L BUN 6 L (7-17) mg/dL Creatinine 0.73 (0.52-1.04) mg/dL Estimated GFR 92.9 ML/MIN Glucose 123 H (74-106) mg/dL Calcium 9.4 (8.4-10.2) mg/dL Total Bilirubin 0.50 (0.2-1.3) mg/dL AST 27 (14-36) U/L ALT 23 (0-35) U/L Alkaline Phosphatase 99 (38-126) U/L Troponin I (0.000-0.033) ng/mL Serum Total Protein 6.9 (6.3-8.2) g/dL Albumin 4.3 (3.5-5.0) g/dL Lipase 61 (23-300) U/L Urine Color (Yellow) Urine Appearance (Clear) Urine pH (4.6-8.0) Ur Specific Holcomb (1.005-1.030) Urine Protein (Negative) Urine Glucose (UA) (Negative) mg/dL Urine Ketones (Negative) Urine Blood (Negative) Urine Nitrite (Negative) Urine Bilirubin (Negative) Urine Urobilinogen (0.2) mg/dL Ur Leukocyte Esterase (Negative) U Hyaline Cast (Auto) (0-2) /LPF Urine Microscopic RBC (0-5) /HPF Urine Microscopic WBC (0-5) /HPF Ur Epithelial Cells (None Seen) /HPF Urine Bacteria (None Seen) /HPF Urine Culture Reflexed (NO) Urine HCG, Qual (NEGATIVE) - Progress Progress: improved Counseled pt/family regarding: lab results, diagnosis, need for follow-up, rad results <CHRISTINA MARK - Last Filed: 01/06/25 18:38> <MIKE BAIG - Last Filed: 01/07/25 01:20> - Progress Progress: improved, re-examined Counseled pt/family regarding: lab results, diagnosis, need for follow-up, rad results <RICHY KINCAID - Last Filed: 01/07/25 17:10> - Progress Progress Note: 01/06/25 14:16 I spoke w/ general surgeon Ryan Lloyd who recommended tranferring pt to [facility] for cardiac evaluation and likely HIDA scan, will consider cholecystectomy at that time. Will call transfer center and attempt to start transfer process 01/06/25 15:03 I spoke w/ Dr Cespedes (hospitalist [facility]) who is willing to accept pt for transfer 01/06/25 17:55 pain relatively well controlled at time of re-exam still awaiting call from transfer center [facility] 01/06/25 18:39 Case discussed w/ Dr Baig who assumes care of patient at 1900 (CHRISTINA MARK) Patient was stable throughout her stay. I gave her some occasional medicine for nausea and vomiting. 01/07/25 01:20 (MIKE BAIG) 01/07/25 07:44 I reexamined the patient. Her pain and nausea are well-controlled at this time. She does not want any additional medication for controlling pain or nausea. I spoke with [facility], Dr. Arguello, the hospitalist. I reviewed the patient history, chief complaint, physical findings, laboratory data results and the most current vital signs with her. She accepts the patient in transfer. I have discussed this with the patient and her spouse. This is the facility she prefers to go to if possible, once a bed opens up. The transfer center will be contacting us when a bed is available. 01/07/25 17:04 The patient also has the potential to being transferred to [facility] as well. We in the emergency department called both [facility] and [facility] at 350 this afternoon. Both facilities stated that it is looking more like tomorrow, 01/08/2025, is when a bed will open up. I spoke with telehospitalist, Dr. Jenkins regarding placing this patient in observation since she has been in the emergency department for over 30 hours waiting for placement. We will place this patient in observation. Dr. Jenkins wanted a single IV dose of Unasyn 1.5 g 01/07/25 17:06 (RICHY KINCAID) Medical Desision Making - Risk of complications The pt has a high risk of morbidity or mortality based on: Decision regarding hospitilization or escalation of hosp level of care <CHRISTINA MARK - Last Filed: 01/06/25 18:38> - Independent Historian Additional History obtained from: Spouse - Diagnostic Testing Diagnostic test were ordered, analyzed, and reviewed by me: Yes Radiological Interpretation: Reviewed by me, Teleradiologist Report - Risk of complications The pt has a high risk of morbidity or mortality based on: Decision regarding hospitilization or escalation of hosp level of care <RICHY KINCAID - Last Filed: 01/07/25 17:10> - Departure Departure Disposition: Transfer Critical Care Time: No <CHRISTINA MARK - Last Filed: 01/06/25 18:38> <MIKE BAIG - Last Filed: 01/07/25 01:20> - Departure Departure Disposition: Observation Critical Care Time: No <RICHY KINCAID - Last Filed: 01/07/25 17:10> - Departure Clinical Impression: Right upper quadrant abdominal pain Cholelithiasis Qualifiers: Cholelithiasis location: gallbladder Cholecystitis presence: without cholecystitis Biliary obstruction: without biliary obstruction Qualified Code(s): K80.20 - Calculus of gallbladder without cholecystitis without obstruction Condition: Stable Referrals: MARTHA LÓPEZ MD [Primary Care Provider] - Follow up/PCP as directed
[2025-01-06 10:57] LABS: Absolute Neutrophil Ct (ANC) 4.86 x10^3/uL (1.56-6.13); BASOPHIL % 1.1 % (0.1-1.2); Basophil (Absolute #) 0.08 x10^3/uL (0.01-0.08); Eosinophil % 1.3 % (0.7-5.8); Hemoglobin 14.2 g/dL (11.2-15.7); IMMATURE GRAN # 0.01 x10^3u/L (0.001-0.031); IMMATURE GRAN % 0.1 % (0.001-0.429); Lymphocytes % 25.3 % (19.3-51.7); Mean Cell Volume 91.5 fL (79.4-94.8); Mean Corpuscular Hemoglobin 32.5 pg (25.6-32.2); Mean Corpuscular Hgb Concent. 35.5 g/dL (32.2-35.5); Mean Platelet Volume 11.6 fL (9.4-12.3); Monocyte (Absolute #) 0.57 x10^3/uL (0.24-0.86); Monocytes % 7.6 % (4.7-12.5); Neutrophil % 64.6 % (34.0-71.1); Platelet Count 195 x10^3/uL (182-369); Red Blood Count 4.37 x10^6/uL (3.93-5.22); Red Cell Distribution Width 11.7 % (11.7-14.4); White Blood Count 7.5 x10^3/uL (3.98-10.04)
[2025-01-06] MEDS: Hydromorphone 1 mg/ml Injection IV ONE (10:58)
[2025-01-06] MEDS: Zofran 4 MG/2 ML VIAL IV ONE ×2 (10:58→20:37)
[2025-01-06] MEDS: Sodium Chloride 0.9% 1000 ML 1,000 ML IV SCH (10:59)
[2025-01-06] MEDS: MORPHINE SULFATE 4 MG INJ IV ONE (11:00)
[2025-01-06 11:11] LABS: ALBUMIN 4.3 g/dL (3.5-5.0); ANION GAP 14.5 MEQ/L (5-15); BILIRUBIN,TOTAL 0.5 mg/dL (0.2-1.3); Calcium 9.4 mg/dL (8.4-10.2); Creatinine 1 0.73 mg/dL (0.52-1.04); EST GLOMERULAR FILTRATION RATE 92.9 ML/MIN; Potassium 4.2 mmol/L (3.5-5.1); Total Protein 6.9 g/dL (6.3-8.2)
[2025-01-06] MEDS ORDERED: Inapsine 5 MG/2 ML ONE ×2 (12:34→23:11)
[2025-01-06] MEDS: Inapsine 5 MG/2 ML IV ONE ×2 (12:36→23:12)
[2025-01-06 20:42] LABS: HCG URINE TEST NEGATIVE (NEGATIVE)
[2025-01-06 20:46] LABS: Appearance Clear (Clear); Bacteria None Seen /HPF (None Seen); Bilirubin Negative (Negative); Blood Negative (Negative); Epithelial Cells Rare /HPF (None Seen); Glucose, Urine Negative (Negative); Hyaline Casts NONE SEEN /LPF (0-2); Ketones 15 (Negative); Leukocyte Esterase Negative (Negative); Nitrite Negative (Negative); Ph 5.5 (4.6-8.0); Protein,Urine Dip Negative (Negative); RBC 0-2 /HPF (0-5); Specific Gravity 1.015 (1.005-1.030); WBC 0-2 /HPF (0-5)
[2025-01-06] MEDS ORDERED: Compazine 10 MG/2 ML ONE (21:49)
[2025-01-06] MEDS: Compazine 10 MG/2 ML IV ONE (21:52)
[2025-01-07] MEDS: MORPHINE SULFATE 10 MG/ML IM ONE (03:18)
[2025-01-07] MEDS ORDERED: Hydromorphone 1 mg/ml Injection ONE ×2 (03:20→12:40)
[2025-01-07] MEDS: Hydromorphone 1 mg/ml Injection IV ONE ×3 (03:21→18:52)
[2025-01-07] MEDS ORDERED: Sodium Chloride 0.9% 500 ML 500 ML IV ONE (08:10)
[2025-01-07] MEDS: Sodium Chloride 0.9% 500 ML 500 ML IV SCH (08:14)
[2025-01-07] MEDS: NICODERM CQ 14 MG TOP SCH (10:02)
[2025-01-07] MEDS ORDERED: Zofran 4 MG/2 ML VIAL ONE (12:30)
[2025-01-07] MEDS: Zofran 4 MG/2 ML VIAL IV ONE (12:48)
[2025-01-07] MEDS ORDERED: Zofran 4 MG/2 ML VIAL IV PRN (18:08)
[2025-01-07] MEDS ORDERED: TYLENOL 325 MG PO PRN (18:08)
--- NOTE | 2025-01-07 18:13 | PCM.HP ---
History of Present Illness - Chief Complaint Chief Complaint: cholecystitis Date: 01/07/25 History of Present Illness: is a 64 year old female with a history of heart failure with reduced ejection fraction (HFrEF) and gallstones presented with right upper quadrant (RUQ) abdominal pain and vomiting, which she described as a "gallbladder attack" that began at 07:30. The pain is intermittent, aching, and currenlty rated 2/10. She noted that Dilaudid provided the most relief in the emergency room today. She was seen in this emergency department on 01/04/25 for similar symptoms, diagnosed with biliary colic, and discharged with Zofran and pain medications. However, she reports no improvement in her pain since that visit, with worsening symptoms this morning, including multiple episodes of non-bloody, non-bilious emesis. Her last bowel movement was yesterday. She denies chest pain, shortness of breath, fever, chills, or radiation of pain beyond the RUQ. The patient was in the process of scheduling an outpatient cholecystectomy but awaiting cardiac clearance due to her CHF and frequent PVCs. She is under the care of an algologist in [place] for this issue and requires an ablation. She is currently awaiting transfer to a higher level of care today as surgery not willing to perform procedure here w/o clearance. In the meantime, she will start on a clear liquid diet, transition to NPO at midnight, and begin treatment with Unasyn. - Review of Systems Constitutional: No Fever, No Chills Eyes: No Symptoms Ears, Nose, & Throat: No Symptoms Respiratory: No Cough, No Short Of Breath Cardiac: No Chest Pain, No Edema, No Syncope Abdominal/Gastrointestinal: Abdominal Pain (RUQ), No Nausea, No Vomiting, No Diarrhea Genitourinary Symptoms: No Dysuria Musculoskeletal: No Back Pain, No Neck Pain Skin: No Rash Neurological: No Dizziness, No Focal Weakness, No Sensory Changes Psychological: No Symptoms Endocrine: No Symptoms Hematologic/Lymphatic: No Symptoms Immunological/Allergic: No Symptoms Medications & Allergies Home Medications: Home Medication List Carvedilol 3.125 mg [Coreg 3.125 MG] 3.125 mg PO BID 01/04/25 [History Confirmed 01/06/25] Escitalopram Oxalate [Lexapro] 10 mg PO DAILY 01/04/25 [History Confirmed 01/06/25] Esomeprazole Magnesium [Nexium] 40 mg PO DAILY 01/04/25 [History Confirmed 01/06/25] Hydrocodone/Acetaminophen [Hydrocodone-Acetamin 5-325 mg] 1 tab PO Q6HPRN PRN 3 Days #12 tablet MDD 4 01/04/25 [Rx Confirmed 01/06/25] Ondansetron ODT 4 MG [Zofran Odt 4 mg] 1 ea PO QIDPRN PRN #10 tablet 01/04/25 [Rx Confirmed 01/06/25] Allergies/Adverse Reactions: Allergies Allergy/AdvReac Type Severity Reaction Status Date / Time No Known Drug Allergies Allergy Verified 01/06/25 10:29 - Past Medical History Past Medical History: Yes Neurological History: No Pertinent History ENT History: No Pertinent History Cardiac History: Arrhythmia, Other Respiratory History: No Pertinent History Endocrine Medical History: Other Musculoskelatal History: Degenerative Disk Disease, Other GI Medical History: GERD, Gallbladder Disease Pyscho-Social History: Anxiety Reproductive Disorders: Breast Cancer Comment: HX OF BREAST CANCER WITH BILATERAL MASTECTOMY 2018. OSTEOPENIA, [employer]: Dr. Velasco (referred to a specialist in [place] for a ventricular ablasion) - Past Surgical History Past Surgical History: Yes Neuro Surgical History: No Pertinent History Cardiac History: No Pertinent History Respiratory Surgery: No Pertinent History GI Surgical History: No Pertinent History Genitourinary Surgical Hx: No Pertinent History Musculskeletal Surgical Hx: No Pertinent History Female Surgical History: Hysterectomy, Mastectomy - Social History Smoking Status: Current every day smoker How long have you smoked: 30 Exposure to second hand smoke: No Alcohol: None Drug Use: none - Social Determinants of Health Will the patient participate in the screening: Yes Do you worry about a steady place to live?: No Do you have any problems with any of the following?: No known problems In the past 12 months,have you had to go without utilities?: No Have you or anyone in your house had to go without enough: No Transportation Issues: No Has anyone in your support network made you feel unsafe?: No - Physical Exam Vital Signs: Vital Signs - 24 hr Pulse Resp BP BP Pulse Ox 01/07/25 17:31 66 14 142/75 95 01/07/25 17:01 70 18 147/76 96 01/07/25 17:00 73 16 95 01/07/25 16:50 74 18 95 01/07/25 16:40 69 19 97 01/07/25 16:32 68 20 96 01/07/25 16:01 73 17 122/85 95 01/07/25 15:30 68 14 131/83 95 01/07/25 15:01 74 12 121/77 93 L 01/07/25 14:30 68 13 116/66 94 L 01/07/25 14:00 68 12 114/60 93 L 01/07/25 13:30 67 8 L 97/71 93 L 01/07/25 13:01 74 11 L 120/59 93 L 01/07/25 12:31 64 16 144/77 87 L 01/07/25 12:01 74 16 122/69 96 01/07/25 11:31 63 17 129/94 97 01/07/25 11:01 66 13 133/69 97 01/07/25 10:32 69 15 110/72 96 01/07/25 10:01 69 20 116/66 95 01/07/25 09:00 76 13 132/74 94 L 01/07/25 08:30 64 15 120/84 99 01/07/25 08:00 66 13 148/80 99 01/07/25 07:31 76 16 131/73 99 01/07/25 07:03 68 11 L 124/86 99 01/07/25 07:00 78 13 124/86 98 01/07/25 06:30 70 11 L 123/80 99 01/07/25 06:09 64 10 L 130/67 99 01/07/25 06:01 76 12 130/67 99 01/07/25 05:30 68 11 L 132/77 99 01/07/25 05:02 60 11 L 121/78 100 01/07/25 05:00 68 9 L 121/78 99 01/07/25 04:30 79 13 130/65 99 01/07/25 04:10 62 12 132/66 99 01/07/25 04:00 81 10 L 132/66 99 01/07/25 03:30 76 10 L 139/74 99 01/07/25 03:26 65 19 149/60 96 01/07/25 03:01 75 12 149/60 99 01/07/25 02:30 77 16 155/92 97 01/07/25 02:01 77 15 137/75 96 01/07/25 01:31 79 12 142/70 96 01/07/25 01:25 66 22 141/77 97 01/07/25 01:00 78 16 141/77 97 01/07/25 00:37 73 16 138/78 97 01/07/25 00:36 67 13 138/78 97 01/07/25 00:35 81 20 96 01/07/25 00:01 129/75 01/06/25 23:30 79 16 135/84 95 01/06/25 23:16 67 17 140/86 96 01/06/25 23:01 83 15 140/86 95 01/06/25 22:31 83 17 161/81 97 01/06/25 22:03 74 20 136/92 96 01/06/25 22:01 85 16 136/92 97 01/06/25 21:31 90 14 157/97 95 01/06/25 21:24 73 13 164/73 96 01/06/25 21:02 94 H 17 164/73 97 01/06/25 20:32 79 19 158/87 97 01/06/25 20:18 91 H 16 142/81 95 01/06/25 20:00 77 20 142/81 97 01/06/25 19:30 90 15 136/86 95 01/06/25 19:00 83 13 137/72 95 01/06/25 18:39 97 01/06/25 18:30 80 13 139/83 95 General Appearance: no apparent distress, alert Neurologic Exam: alert, oriented x 3, cooperative, normal mood/affect, nml cerebellar function, nml station & gait, sensation nml, No motor deficits Eye Exam: PERRL/EOMI, eyes nml inspection Ears, Nose, Throat Exam: normal ENT inspection, TMs normal, pharynx normal, moist mucous membranes Neck Exam: normal inspection, non-tender, supple, full range of motion Respiratory Exam: normal breath sounds, lungs clear, No respiratory distress Cardiovascular Exam: regular rate/rhythm, normal heart sounds, normal peripheral pulses Gastrointestinal/Abdomen Exam: soft, normal bowel sounds, tenderness (RUQ), No mass Back Exam: normal inspection, normal range of motion, No CVA tenderness, No vertebral tenderness Extremity Exam: normal inspection, normal range of motion, pelvis stable Skin Exam: normal color, warm, dry, No rash Lymphatic Exam: No adenopathy Results - Labs Lab/Micro Results: Lab Results-Last 24 Hours 01/06/25 01/06/25 Range/Units 20:33 20:36 Urine Color Yellow (Yellow) Urine Appearance Clear (Clear) Urine pH 5.5 (4.6-8.0) Ur Specific [place] 1.015 (1.005-1.030) Urine Protein Negative (Negative) Urine Glucose (UA) Negative (Negative) mg/dL Urine Ketones 15 A (Negative) Urine Blood Negative (Negative) Urine Nitrite Negative (Negative) Urine Bilirubin Negative (Negative) Urine Urobilinogen 1.0 A (0.2) mg/dL Ur Leukocyte Esterase Negative (Negative) U Hyaline Cast (Auto) NONE SEEN (0-2) /LPF Urine Microscopic RBC 0-2 (0-5) /HPF Urine Microscopic WBC 0-2 (0-5) /HPF Ur Epithelial Cells Rare (None Seen) /HPF Urine Bacteria None Seen (None Seen) /HPF Urine Culture Reflexed NO (NO) Urine HCG, Qual NEGATIVE (NEGATIVE) Assessment/Plan (1) Cholelithiasis Current Visit: Yes Status: Acute Qualifiers: Cholelithiasis location: gallbladder Cholecystitis presence: without cholecystitis Biliary obstruction: without biliary obstruction Qualified Code(s): K80.20 - Calculus of gallbladder without cholecystitis without obstruction Assessment & Plan: - Clear liquid diet then NPO at midnight - Awating tx to higher level of care as needs cardiac clearance prior to surgery. - IV narcotic pain med - Unasyn - CBC, CMP reviewed - IVF (2) Right upper quadrant abdominal pain Current Visit: Yes Status: Acute Assessment & Plan: - 2:2 Cholecystitis - Dilauidd IV for Pain PRN Code(s): R10.11 - RIGHT UPPER QUADRANT PAIN (3) Irregular heart rhythm Current Visit: Yes Status: Chronic Assessment & Plan: - Will need cardiac clearance at higher level of care prior to surgery - Tele Code(s): I49.9 - CARDIAC ARRHYTHMIA, UNSPECIFIED Telemedicine Encounter - Telemedicine Encounter Telemedicine Encounter: "The entirety of this encounter was performed via Telemedicine" This visit was performed using real-time audio and video connection between my location and thepatients locationwith the assistance of a surrogateat the patients location. Written or verbal consent was obtained from the patient/guardian to perform this visit [email or web address]. Any patient questions regarding the telemedicine interaction were answered.
[2025-01-07] MEDS ORDERED: Hydromorphone 1 mg/ml Injection IV PRN (18:15)
[2025-01-07] MEDS ORDERED: PROTONIX 40 MG IV IV ONE (18:47)
[2025-01-07] MEDS ORDERED: Sodium Chloride 0.9% 1000 ML 1,000 ML ONE (18:47)
[2025-01-07] MEDS: PROTONIX 40 MG IV IV SCH (18:51)
[2025-01-07] MEDS: Unasyn 1.5GM Vial*** 1.5 G in Sodium Chloride 0.9% 100 ML IV ONE (18:51)
[2025-01-07] MEDS: Unasyn 1.5GM Vial*** 1.5 G in Sodium Chloride 100ML MINI-BAG PLUS 100 ML IV SCH (19:17)
[2025-01-07 19:31] VITALS: BP 139/67; PULSE 64; RESP 15; TEMP 98.4; O2SAT 92
[2025-01-07] MEDS ORDERED: Coreg 3.125 MG ONE (22:45)
[2025-01-07] MEDS: Coreg 3.125 MG PO SCH (22:48)
[2025-01-08] MEDS ORDERED: Lexapro PO SCH (10:00)
== END 2025-01-07 23:00 | disposition home or self-care (01) ==
LOC: ED 10:18 → MED SURG 01-07 17:57
PROVIDERS: ADMIT Internal Medicine; ATTEND Internal Medicine
DX: K80.20 Calculus of gallbladder without cholecystitis without obstruction (principal); R10.11 Right upper quadrant pain; I49.9 Cardiac arrhythmia, unspecified; R11.10 Vomiting, unspecified; F17.200 Nicotine dependence, unspecified, uncomplicated; Z85.3 Personal history of malignant neoplasm of breast; Z79.899 Other long term (current) drug therapy
CPT/HCPCS: 36415; 80053; 81001; 81025; 83690; 84484; 85025; 93005; 96374; 96375; 99285; J0295; J1171; J1790; J2405; A9270-GY